=== PATIENT | female | born 1945 | race Caucasian/White ===

== ENCOUNTER 2018-05-24 17:12 | Inpatient (IN) ==
[2018-05-24] MEDS ORDERED: ONDANSETRON 4 MG/2 ML VIAL IV ONE (20:10)
[2018-05-24] MEDS ORDERED: MORPHINE 4 MG/1 ML VIAL IV STA (20:10)
[2018-05-24] MEDS ORDERED: ONDANSETRON 4 MG/2 ML VIAL ONE (20:12)
[2018-05-24] MEDS ORDERED: MORPHINE 4 MG/1 ML VIAL ONE (20:13)
[2018-05-24] MEDS ORDERED: MORPHINE 4 MG/1 ML VIAL IV PRN (21:18)
[2018-05-24] MEDS ORDERED: ACETAMINOPHEN 325 MG TABLET PO PRN (21:18)
[2018-05-24] MEDS ORDERED: ONDANSETRON 4 MG/2 ML VIAL IV PRN (21:18)
[2018-05-24] MEDS ORDERED: BISACODYL 5 MG TABLET PO PRN (21:18)
[2018-05-24] MEDS ORDERED: NICOTINE 21 MG/24 HR PATCH TRANSDERM PRN (21:18)
[2018-05-24] MEDS ORDERED: diphenhydrAMINE CAP 25 MG CAPSULE PO PRN (21:18)
[2018-05-24] MEDS: SODIUM CHLORIDE 0.9% 1,000 ML IV SCH (23:22)
[2018-05-24 23:27] LABS: Basophils # 0.1 10*3/uL (0.0-0.2); Basophils % 0.4 % (0.0-0.8); Eosinophils % 0.1 % (0.00-10.9); Hematocrit 40.5 VOL% (35.7-47.0); Hemoglobin 12.6 GM/DL (12.0-16.0); Immature Granulocytes % 0.6 %; Immature Granulocytes Absolute 0.08 #; Lymphocytes # 0.6 10*3/uL (1.4-4.0); Lymphocytes % 4.8 % (21.3-54.2); Mean Corpuscular HGB Conc 31.1 GM/DL (32-36); Mean Corpuscular Hemoglobin 26 PG (27-34); Mean Corpuscular Volume 84.6 FL (87-102); Mean Platelet Volume 12.8 FL (9.6-12.0); Monocytes # 0.5 10*3/uL (0.11-0.8); Monocytes % 4.1 % (1.7-12.7); Neutrophils # 11.7 10*3/uL (1.4-7.4); Red Blood Count 4.79 MC/CUMM (3.8-5.5); Red Cell Distribution Width 13.2 % (9.3-17.3)
[2018-05-24 23:29] LABS: Platelet Count 94 T/CUMM (130-400)
[2018-05-24 23:37] LABS: INR 0.9; PT Patient Result 9.7 SECS; Partial Thromboplastin Time 26.4 SECS (0-40)
[2018-05-24 23:50] LABS: Albumin 3.6 G/DL (3.4-5.0); Bilirubin,Total 0.5 MG/DL (0.2-1.0); Calcium 8.8 MG/DL (8.5-10.1); Osmolality,Calculated 276.7 MOS/KG (273-304); Potassium 3.1 MMOL/L (3.5-5.1); Total Protein 7.4 G/DL (6.4-8.3)
[2018-05-25 05:14] LABS: Platelet Estimate Decreased; Polychromasia Few
[2018-05-25] MEDS ORDERED: NIFEdipine 10 MG CAPSULE PO PRN (07:39)
[2018-05-25] MEDS: POTASSIUM CHLORIDE RIDER 10 MEQ in PREMIX 1 EACH IV SCH ×2 (08:00→11:22)
[2018-05-25] MEDS ORDERED: ceFAZolin 1,000 MG in SYRINGE 1 EACH IV ONE (08:18)
[2018-05-25] MEDS ORDERED: FAMOTIDINE 20 MG TABLET PO ONE (08:23)
[2018-05-25] MEDS ORDERED: BISACODYL 10 MG SUPP RECTAL PRN (08:59)
[2018-05-25] MEDS ORDERED: MAGNESIUM HYDROXIDE SUSP 30 ML UDCUP PO PRN (08:59)
[2018-05-25] MEDS ORDERED: LACTULOSE 20 GM/30 ML UDCUP PO PRN (08:59)
[2018-05-25] MEDS ORDERED: PROMETHAZINE 25 MG/1 ML VIAL IM PRN (08:59)
[2018-05-25] MEDS ORDERED: [UNRECOGNIZED DRUG - OTHER] PO SCH (09:00)
[2018-05-25] MEDS ORDERED: FOLIC PO SCH (09:00)
[2018-05-25] MEDS ORDERED: GINKGO PO SCH (09:00)
[2018-05-25] MEDS ORDERED: MULTIVIT MINERALS PO SCH (09:00)
[2018-05-25] MEDS ORDERED: MORPHINE 4 MG/1 ML VIAL IV PRN ×2 (09:04→09:10)
[2018-05-25] MEDS ORDERED: ePHEDrine 50 MG/ML AMP ONE (10:13)
[2018-05-25] MEDS ORDERED: SEVOFLURANE 1 UNIT/15 MINUTE INH ONE (10:33)
[2018-05-25] MEDS ORDERED: PROPOFOL 200 MG/20 ML VIAL IV ONE (10:33)
[2018-05-25] MEDS ORDERED: ACETAMINOPHEN 1,000 MG/100 ML VIAL IV ONE (10:34)
[2018-05-25] MEDS ORDERED: MIDAZOLAM 2 MG/2 ML VIAL ONE (10:34)
[2018-05-25] MEDS ORDERED: ONDANSETRON 4 MG/2 ML VIAL ONE (10:34)
[2018-05-25] MEDS ORDERED: fentaNYL 100 MCG/2 ML VIAL ONE (10:34)
[2018-05-25] MEDS: MULTIVITAMIN (BEROCCA) TABLET PO SCH ×2 (11:25→21:06)
[2018-05-25] MEDS: PANTOPRAZOLE 40 MG TABLET PO SCH (11:25)
[2018-05-25] MEDS: POTASSIUM CHLORIDE 20 MEQ TABLET PO SCH ×3 (11:25→15:52)
[2018-05-25] MEDS: DICLOFENAC 1% GEL 100 GM TUBE TOP SCH ×4 (11:26→21:07)
[2018-05-25] MEDS: FLUTICASONE 50 MCG NASAL SPRAY 16 GM BOTTLE BOTH NARES SCH (11:26)
[2018-05-25] MEDS: CALCIUM (CARBONATE)/VITAMIN D 500 MG-200 UNIT TABLET PO SCH ×2 (11:27→21:06)
[2018-05-25] MEDS: SODIUM CHLORIDE 0.9% 1,000 ML IV SCH (12:47)
[2018-05-25] MEDS: ceFAZolin 1,000 MG in SYRINGE 1 EACH IV SCH ×2 (13:23→21:08)
[2018-05-25] MEDS ORDERED: FONDAPARINUX 2.5 MG/0.5 ML SYRINGE SUBCUT SCH (18:00)
[2018-05-26 04:40] LABS: Basophils % 0.4 % (0.0-0.8); Eosinophils # 0.5 10*3/uL (0.0-0.87); Eosinophils % 6.5 % (0.00-10.9); Hematocrit 35.3 VOL% (35.7-47.0); Hemoglobin 10.5 GM/DL (12.0-16.0); Immature Granulocytes % 0.4 %; Immature Granulocytes Absolute 0.03 #; Lymphocytes # 0.8 10*3/uL (1.4-4.0); Lymphocytes % 9.5 % (21.3-54.2); Mean Corpuscular HGB Conc 29.7 GM/DL (32-36); Mean Corpuscular Hemoglobin 26 PG (27-34); Mean Corpuscular Volume 87.6 FL (87-102); Mean Platelet Volume 13.3 FL (9.6-12.0); Monocytes # 0.6 10*3/uL (0.11-0.8); Monocytes % 7.7 % (1.7-12.7); Neutrophils # 6.2 10*3/uL (1.4-7.4); Neutrophils % 75.5 % (38.7-73.9); Red Blood Count 4.03 MC/CUMM (3.8-5.5); Red Cell Distribution Width 13.5 % (9.3-17.3); White Blood Count 8.2 T/CUMM (4-12)
[2018-05-26 04:53] LABS: Platelet Count 41 T/CUMM (130-400)
[2018-05-26 04:58] LABS: Osmolality,Calculated 277.4 MOS/KG (273-304); Potassium 3.9 MMOL/L (3.5-5.1)
[2018-05-26 05:06] LABS: Hypochromasia 1+; Platelet Estimate Decreased
[2018-05-26] MEDS: LEVOTHYROXINE 75 MCG TABLET PO SCH (06:23)
[2018-05-26] MEDS: ceFAZolin 1,000 MG in SYRINGE 1 EACH IV SCH (06:23)
[2018-05-26] MEDS ORDERED: CHLORTHALIDONE 25 MG TABLET PO SCH (09:00)
[2018-05-26] MEDS: PANTOPRAZOLE 40 MG TABLET PO SCH (09:05)
[2018-05-26] MEDS: ASPIRIN EC 325 MG TABLET PO SCH (09:05)
[2018-05-26] MEDS: TRIAMTERENE/HCTZ 75-50 MG TABLET PO SCH (09:05)
[2018-05-26] MEDS: FEXOFENADINE 180 MG TABLET PO SCH (09:06)
[2018-05-26] MEDS: CALCIUM (CARBONATE)/VITAMIN D 500 MG-200 UNIT TABLET PO SCH ×2 (09:06→20:35)
[2018-05-26] MEDS: MULTIVITAMIN (BEROCCA) TABLET PO SCH ×2 (09:06→20:35)
[2018-05-26] MEDS: FLUTICASONE 50 MCG NASAL SPRAY 16 GM BOTTLE BOTH NARES SCH (09:07)
[2018-05-26] MEDS: DICLOFENAC 1% GEL 100 GM TUBE TOP SCH ×4 (09:07→20:35)
[2018-05-26] MEDS: POTASSIUM CHLORIDE 20 MEQ TABLET PO SCH (09:07)
[2018-05-26] MEDS: SODIUM CHLORIDE 0.9% 1,000 ML IV SCH ×2 (09:18→14:12)
[2018-05-26] MEDS: amLODIPine 5 MG TABLET PO SCH (15:26)
[2018-05-27 05:30] LABS: Basophils % 0.4 % (0.0-0.8); Eosinophils # 0.6 10*3/uL (0.0-0.87); Eosinophils % 6.2 % (0.00-10.9); Hematocrit 35.2 VOL% (35.7-47.0); Hemoglobin 10.7 GM/DL (12.0-16.0); Immature Granulocytes % 0.5 %; Immature Granulocytes Absolute 0.05 #; Lymphocytes # 0.9 10*3/uL (1.4-4.0); Lymphocytes % 9.4 % (21.3-54.2); Mean Corpuscular HGB Conc 30.4 GM/DL (32-36); Mean Corpuscular Hemoglobin 26 PG (27-34); Mean Corpuscular Volume 85.6 FL (87-102); Mean Platelet Volume 13.9 FL (9.6-12.0); Monocytes # 0.8 10*3/uL (0.11-0.8); Monocytes % 8.7 % (1.7-12.7); Neutrophils # 7.1 10*3/uL (1.4-7.4); Neutrophils % 74.8 % (38.7-73.9); Red Blood Count 4.11 MC/CUMM (3.8-5.5); Red Cell Distribution Width 13.2 % (9.3-17.3); White Blood Count 9.5 T/CUMM (4-12)
[2018-05-27 05:31] LABS: Platelet Count 43 T/CUMM (130-400)
[2018-05-27 05:49] LABS: Hypochromasia 1+; Ovalocytes Slight; Platelet Estimate Decreased
[2018-05-27] MEDS: LEVOTHYROXINE 75 MCG TABLET PO SCH (06:16)
[2018-05-27] MEDS: POTASSIUM CHLORIDE 20 MEQ TABLET PO SCH (08:44)
[2018-05-27] MEDS: amLODIPine 5 MG TABLET PO SCH (08:44)
[2018-05-27] MEDS: MULTIVITAMIN (BEROCCA) TABLET PO SCH ×2 (08:44→20:29)
[2018-05-27] MEDS: PANTOPRAZOLE 40 MG TABLET PO SCH (08:44)
[2018-05-27] MEDS: CALCIUM (CARBONATE)/VITAMIN D 500 MG-200 UNIT TABLET PO SCH ×2 (08:44→20:29)
[2018-05-27] MEDS: FEXOFENADINE 180 MG TABLET PO SCH (08:44)
[2018-05-27] MEDS: ASPIRIN EC 325 MG TABLET PO SCH (08:45)
[2018-05-27] MEDS: TRIAMTERENE/HCTZ 75-50 MG TABLET PO SCH (08:45)
[2018-05-27] MEDS: FLUTICASONE 50 MCG NASAL SPRAY 16 GM BOTTLE BOTH NARES SCH (08:51)
[2018-05-27] MEDS: DICLOFENAC 1% GEL 100 GM TUBE TOP SCH ×4 (08:53→20:30)
[2018-05-28] MEDS: LEVOTHYROXINE 75 MCG TABLET PO SCH (06:00)
[2018-05-28] MEDS: CALCIUM (CARBONATE)/VITAMIN D 500 MG-200 UNIT TABLET PO SCH (09:01)
[2018-05-28] MEDS: POTASSIUM CHLORIDE 20 MEQ TABLET PO SCH (09:01)
[2018-05-28] MEDS: amLODIPine 5 MG TABLET PO SCH (09:01)
[2018-05-28] MEDS: ASPIRIN EC 325 MG TABLET PO SCH (09:01)
[2018-05-28] MEDS: MULTIVITAMIN (BEROCCA) TABLET PO SCH (09:01)
[2018-05-28] MEDS: FEXOFENADINE 180 MG TABLET PO SCH (09:01)
[2018-05-28] MEDS: TRIAMTERENE/HCTZ 75-50 MG TABLET PO SCH (09:01)
[2018-05-28] MEDS: PANTOPRAZOLE 40 MG TABLET PO SCH (09:01)
[2018-05-28] MEDS: DICLOFENAC 1% GEL 100 GM TUBE TOP SCH (09:11)
[2018-05-28] MEDS: FLUTICASONE 50 MCG NASAL SPRAY 16 GM BOTTLE BOTH NARES SCH (09:11)
[2018-05-28 12:01] VITALS: BP 114/66
== END 2018-05-28 12:25 | disposition home or self-care (01) | DRG 482 ==
LOC: N.ED 17:12 → N.EDINP 21:18 → SUATTDRO 21:18 → N.3E 22:23
PROVIDERS: ADMIT Internal Medicine; ATTEND Internal Medicine